=== PATIENT | female | born 1960 | race African-American/Black ===

== ENCOUNTER 2022-01-20 04:20 | Day surgery (SDC) | payer BC, OTHER ==
[2022-01-16 14:33] VITALS: BMI 41.9
[2022-01-20] MEDS ORDERED: KETOROLAC TROMETHAMINE 30 MG/1 ML VIAL ONE (14:37)
[2022-01-20] MEDS ORDERED: ONDANSETRON 4 MG/2 ML VIAL ONE (14:37)
[2022-01-20] MEDS ORDERED: PROPOFOL 40 ML ONE (14:37)
[2022-01-20] MEDS ORDERED: DEXAMETHASONE SOD PHOSPHATE 4 MG/1 ML VIAL ONE (14:37)
[2022-01-20] MEDS ORDERED: ACETAMINOPHEN 325 MG TABLET (FP) PO PRN (15:29)
[2022-01-20] MEDS ORDERED: oxyCODONE HCL 5 MG TABLET PO PRN (15:29)
[2022-01-20] MEDS ORDERED: ONDANSETRON 4 MG/2 ML VIAL IVPUSH PRN (15:29)
[2022-01-20] MEDS ORDERED: ceFAZolin SODIUM 1 GM VIAL ONE ×2 (15:38)
[2022-01-20] MEDS ORDERED: ceFAZolin SODIUM 1 GM VIAL IVPB ONE (15:41)
[2022-01-20 17:32] VITALS: BP 147/80; PULSE 63; RESP 18; TEMP 98.7
== END 2022-01-20 18:00 | disposition home or self-care (01) ==
LOC: JASU-SURG 04:20
PROVIDERS: ATTEND Obstetrics & Gynecology
PROC: 0UJD8ZZ Inspection of Uterus and Cervix, Via Natural or Artificial Opening Endoscopic (ICD-10-PCS; 2022-01-20)
PROC: 0UDB7ZX Extraction of Endometrium, Via Natural or Artificial Opening, Diagnostic (ICD-10-PCS; principal; 2022-01-20 14:00)
DX: N84.0 Polyp of corpus uteri (principal)
CPT/HCPCS: 88305-TC; 94760

== ENCOUNTER 2023-12-16 04:11 | Day surgery (SDC) | payer BC, OTHER ==
[2023-12-15 11:21] VITALS: BMI 39.6
[2023-12-16] MEDS ORDERED: LIDOCAINE HCL 1%, 10 MG/ML (20ML VIAL) ONE (07:25)
[2023-12-16] MEDS ORDERED: BUPIVACAINE HCL/PF 0.5% (5MG/ML) 10 ML VIAL ONE (07:25)
[2023-12-16] MEDS ORDERED: PROPOFOL 40 ML ONE (08:04)
[2023-12-16] MEDS ORDERED: MIDAZOLAM HCL 2 MG/2 ML SINGLE DOSE VIAL ONE (08:04)
[2023-12-16] MEDS ORDERED: EPINEPHrine/PF 1 MG/1 ML (1:1,000) AMPULE ONE (08:05)
[2023-12-16] MEDS ORDERED: BUPIVACAINE HCL/PF 0.25% (2.5MG/ML) 10 ML VIAL ONE ×3 (08:05→08:52)
[2023-12-16] MEDS ORDERED: ceFAZolin SODIUM 1 GM VIAL ONE (08:31)
[2023-12-16] MEDS: ceFAZolin SODIUM 1 GM VIAL IVPB ONE (08:32)
[2023-12-16] MEDS ORDERED: ONDANSETRON 4 MG/2 ML VIAL ONE (09:39)
[2023-12-16] MEDS ORDERED: DEXAMETHASONE SOD PHOSPHATE 4 MG/1 ML VIAL ONE (09:39)
[2023-12-16] MEDS ORDERED: ONDANSETRON 4 MG/2 ML VIAL IVPUSH PRN (09:45)
[2023-12-16] MEDS: ACETAMINOPHEN 1000 MG/100 ML BAG IVPB ONE (09:51)
[2023-12-16] MEDS: LACTATED RINGERS SOLUTION 1,000 ML IV SCH (09:56)
[2023-12-16 10:33] VITALS: PULSE 81
[2023-12-16 10:43] VITALS: TEMP 97.2
[2023-12-16 10:46] VITALS: BP 134/77; RESP 18
== END 2023-12-16 11:50 | disposition home or self-care (01) ==
LOC: JASU-SURG 04:11
PROVIDERS: ATTEND Surgery
PROC: 0JB70ZX Excision of Back Subcutaneous Tissue and Fascia, Open Approach, Diagnostic (ICD-10-PCS; principal; 2023-12-16 08:40)
DX: D17.1 Benign lipomatous neoplasm of skin and subcutaneous tissue of trunk (principal)
CPT/HCPCS: 88304-TC; 94760; J0131